=== PATIENT | female | born 1985 | race Two or more races ===

== ENCOUNTER 2025-01-09 17:44 | Emergency (ER) | payer OTHER ==
[~2025-01-09] VITALS: Ht 162.6 cm; Wt 68.0 kg
[2025-01-09] MEDS ORDERED: AMLODIPINE-OLM1 EACH PO (17:56)
[2025-01-09] MEDS ORDERED: VASOTEC20 M1 (17:56)
[2025-01-09] MEDS ORDERED: KETOROLAC TROMETHAMINE 60 MG VIAL IM STA (20:54)
[2025-01-09] MEDS ORDERED: CEFTRIAXONE SODIUM 2,000 MG VIAL IV STA (20:54)
[2025-01-09 21:42] LABS: BASO % 0.3 % (0.1-1.2); EOS # 0.03 (0.04-0.54); EOS % 0.3 % (0.7-7.0); LYMPH # 1.28 (1.18-3.74); LYMPH % 12.7 % (19.3-53.1); MEAN PLATELET VOLUME 10.20 fl (9.4-12.4); MONO # 1.00 (0.24-0.82); MONO % 10.0 % (4.7-12.5); NEUT # 7.67 (1.56-6.13); NEUT % 76.4 % (34.0-71.1); RED CELL DISTRIBUTION WIDTH 13.4 % (11.6-14.4)
[2025-01-09 22:13] LABS: ALT/SGPT 28.0 U/L (12-78); AST/SGOT 43.0 U/L (15-37); BILIRUBIN TOTAL 0.49 mg/dL (0.3-1.2); BUN CREA RATIO 8.0 (7.0-25.0); CREATININE SERUM 0.83 mg/dL (0.70-1.30); GFR 102.1; GLOBULINA 4.5 G/DL (2.4-3.5); GLUCOSE FASTING 99.0 mg/dL (65-100); OSMOLALITY SERUM 277.0 MOSM/KG (275-295)
[2025-01-10] MEDS ORDERED: KETOROLAC TROMETHAMINE 60 MG VIAL IM STA (01:05)
[2025-01-10] MEDS ORDERED: CLINDAMYCIN PHOSPHATE 150 MG/ML (600mg) IM STA (01:05)
== END 2025-01-10 01:33 | disposition home or self-care (01) ==
LOC: EDSEX 18:43 → ER 18:43
PROVIDERS: Preventive Medicine Public Health & General Preventive Medicine
DX: K05.219 Aggressive periodontitis, localized, unspecified severity (principal); K08.409 Partial loss of teeth, unspecified cause, unspecified class; I10 Essential (primary) hypertension